=== PATIENT | male | born 1970 | race Caucasian/White ===

== ENCOUNTER 2022-05-17 13:45 | Emergency (ER) | payer OTHER ==
[2022-05-17] MEDS ORDERED: Lidocaine 1% PF 5 ML VIAL ONE ×2 (14:03→14:04)
[2022-05-17] MEDS ORDERED: Bacitracin 1 PK ONE ×2 (14:03→14:33)
== END 2022-05-17 14:45 | disposition home or self-care (01) ==
LOC: MADERS 13:45
DX: S01.01XA Laceration without foreign body of scalp, initial encounter (principal); W23.0XXA Caught, crushed, jammed, or pinched between moving objects, initial encounter; Y99.0 Civilian activity done for income or pay; E11.9 Type 2 diabetes mellitus without complications; Z79.84 Long term (current) use of oral hypoglycemic drugs
CPT/HCPCS: 12002